=== PATIENT | male | born 1955 | race Caucasian/White ===

== ENCOUNTER → 2024-03-04 | Outpatient (CLI) | payer MEDICARE ==
[2024-03-04] VITALS (13 sets, daily range): BP systolic 101–122; BP diastolic 64–74; PULSE 94–105; TEMP 97.2
[~2024-03-04] VITALS: Ht 185.4 cm; Wt 64.7 kg
[~2024-03-04] MED LIST: CLOPIDOGREL PO; COMBIVENT INH14.7 GM IH; DAZIDOX10 MG PO; KLONOPIN 1MG1 MG PO; LISINOPRIL/HCTZ1 TA2 PO; NORVASC 5MG5 MG/TAB PO; ZETIA10 MG PO; ZOCOR80 MG PO
[2024-03-04 07:00] LABS: INR 1.2 (0.8-3.0); PROTHROMBIN TIME 12.8 SECONDS (9.7-12.8)
--- NOTE | 2024-03-04 07:43 | NUR ---
SPECIMEN COLLECTED AT 0743.
--- NOTE | 2024-03-04 10:14 | NUR ---
PATIENT COMPLETED HIS RECOVERY WITHOUT ISSUE. PATIENT CONTINUES TO DENY HAVING ANY PAIN. BANDAGE REMAINS CLEAN, DRY, AND INTACT. IV REMOVED WITHOUT ISSUE AND PATIENT DRESSED HIMSELF. ESCORTED PATIENT VIA WHEELCHAIR WITH ALL OF HIS PERSONAL ITEMS TO THE PATIENT ENTRANCE WHERE HIS RIDE PICKED HIM UP. HE GOT INTO THE FRONT PASSENGER SEAT WITHOUT ASSISTANCE. ALL NEEDS MET.
== END ==
LOC: COL.RAD 05:38
PROVIDERS: Internal Medicine
DX: C82.15 Follicular lymphoma grade II, lymph nodes of inguinal region and lower limb (principal)
CPT/HCPCS: 32108